=== PATIENT | male | born 1975 | race Caucasian/White ===

== ENCOUNTER 2023-01-05 17:32 | Observation (INO) | payer OTHER ==
[2023-01-05 17:41] VITALS: BMI 35.1
[2023-01-05] MEDS ORDERED: VANCOMYCIN 1,000 MG in DEXTROSE 5%-WATER - 250 ML IVPB ONE (18:35)
[2023-01-05] MEDS ORDERED: CEFEPIME HCL 1 GM VIAL (RESTRICTED TO ID) IVPB ONE (18:45)
[2023-01-05] MEDS ORDERED: CEFEPIME 1 GM/100 ML BAG IVPB ONE (18:50)
[2023-01-05 19:23] LABS: BASO % 0.8 % (0-2.0); EOS % 2.6 % (0-4.5); HEMATOCRIT 40.3 % (35.4-49); HEMOGLOBIN 13.7 GM/dL (11.7-16.9); MCH 30.9 pg (25.7-33.7); MCHC 33.9 g/dl (32.0-35.9); MEAN CELL VOLUME 91.2 fl (80-96); MEAN PLT VOLUME 6.7 fl (7.5-11.1); MONO % 9.7 % (3.8-10.2); NEUT % 63.9 % (42.8-82.8); PLATELET COUNT 508 10^3/uL (134-434); RBC 4.42 M/mm3 (4.00-5.60); RDW 14.7 % (11.9-15.9); WHITE BLOOD COUNT 7.3 K/mm3 (4.0-10.0)
[2023-01-05 19:31] LABS: INR 0.97 (0.83-1.09); PROTHROMBIN TIME (PATIENT) 11.3 SEC (9.7-13.0)
[2023-01-05 19:34] LABS: ACTIVATED PTT 32.3 SECONDS (25.2-36.5)
[2023-01-05 19:52] LABS: CHLORIDE 104 mmol/L (98-107); POTASSIUM 4.3 mmol/L (3.5-5.1); SODIUM 137 mmol/L (136-145)
[2023-01-05 19:54] LABS: CALCIUM 8.5 mg/dL (8.5-10.1)
[2023-01-05 19:55] LABS: ALBUMIN 3.4 g/dl (3.4-5.0); ANION GAP 4 mmol/L (4-13); BLOOD UREA NITROGEN 15.4 mg/dL (7-18); CO2 28 mmol/L (21-32); GLUCOSE,RANDOM 90 mg/dL (74-106)
[2023-01-05 19:58] LABS: CREATININE 0.7 mg/dL (0.55-1.3); SGOT/AST 19 U/L (15-37); SGPT/ALT 23 U/L (13-61)
[2023-01-05 20:01] LABS: ALK PHOS 156 U/L (45-117); BILIRUBIN,TOTAL 0.3 mg/dL (0.2-1); TOT PROT 6.8 g/dl (6.4-8.2)
[2023-01-05] MEDS ORDERED: VANCOMYCIN 1 GRAM (PRE-DOCKED) 1,000 MG/250 ML BAG IVPB ONE (20:25)
[2023-01-05] MEDS ORDERED: ACETAMINOPHEN 1000 MG/100 ML BAG IVPB ONE (20:44)
[2023-01-05] MEDS ORDERED: ACETAMINOPHEN INJECTION 100 ML IVPB ONE (20:55)
[2023-01-05 21:13] LABS: URINE APPEARANCE CLEAR; URINE BILIRUBIN NEGATIVE (NEGATIVE); URINE COLOR YELLOW; URINE GLUCOSE (UA) NEGATIVE (NEGATIVE); URINE KETONE NEGATIVE (NEGATIVE); URINE LEUK ESTERASE NEGATIVE (NEGATIVE); URINE NITRITE NEGATIVE (NEGATIVE); URINE PROTEIN NEGATIVE (NEGATIVE); URINE UROBILINOGEN 0.2 mg/dL (0.2-1.0)
[2023-01-06] MEDS ORDERED: DOCUSATE SODIUM 100 MG CAPSULE (FP) PO PRN (02:16)
[2023-01-06 02:53] LABS: URINE BENZODIAZEPINES NEGATIVE (NEGATIVE)
[2023-01-06 02:54] LABS: COCAINE, UR NEGATIVE (NEGATIVE); METHADONE, UR NEGATIVE (NEGATIVE); OPIATES, URI NEGATIVE (NEGATIVE); URINE AMPHETAMINES NEGATIVE (NEGATIVE)
[2023-01-06] MEDS ORDERED: ACETAMINOPHEN 1000 MG/100 ML BAG IVPB PRN (03:00)
[2023-01-06 03:08] LABS: PHENCYCLIDINE,URINE POSITIVE (NEGATIVE); URINE BARBITURATES NEGATIVE (NEGATIVE)
[2023-01-06] MEDS ORDERED: CEFEPIME HCL 2 GM VIAL (RESTRICTED TO ID) IVPB SCH (06:00)
[2023-01-06] MEDS: VANCOMYCIN/WATER 1250 MG 1,250 MG/250 ML BAG IVPB SCH ×2 (07:32→22:00)
[2023-01-06 10:21] LABS: BASO % 1.1 % (0-2.0); EOS % 3.5 % (0-4.5); HEMATOCRIT 40.9 % (35.4-49); HEMOGLOBIN 13.4 GM/dL (11.7-16.9); LYMPH % 24.3 % (8-40); MCH 30.7 pg (25.7-33.7); MCHC 32.8 g/dl (32.0-35.9); MEAN CELL VOLUME 93.5 fl (80-96); MEAN PLT VOLUME 6.9 fl (7.5-11.1); MONO % 10.1 % (3.8-10.2); PLATELET COUNT 481 10^3/uL (134-434); RBC 4.38 M/mm3 (4.00-5.60); RDW 14.1 % (11.9-15.9); WHITE BLOOD COUNT 6.1 K/mm3 (4.0-10.0)
[2023-01-06 10:42] LABS: POTASSIUM 4.2 mmol/L (3.5-5.1)
[2023-01-06 11:06] LABS: CALCIUM 8.6 mg/dL (8.5-10.1)
[2023-01-06 11:07] LABS: BLOOD UREA NITROGEN 17.3 mg/dL (7-18)
[2023-01-06 11:10] LABS: CREATININE 0.7 mg/dL (0.55-1.3)
[2023-01-06] MEDS: ENOXAPARIN NA (PORCINE) 40 MG/0.4 ML DISP.SYRIN SQ SCH (18:06)
[2023-01-06] MEDS ORDERED: CEFEPIME 2 GM in DEXTROSE 5%-WATER 100 ML IVPB SCH (22:00)
[2023-01-07] MEDS: KETOROLAC TROMETHAMINE 15 MG/ML VIAL IVPUSH PRN ×2 (06:47→17:21)
[2023-01-07] MEDS: ENOXAPARIN NA (PORCINE) 40 MG/0.4 ML DISP.SYRIN SQ SCH (09:31)
[2023-01-07] MEDS: CEFTRIAXONE 1 GM in DEXTROSE 5%-WATER - 50 ML IVPB SCH (13:33)
[2023-01-07] MEDS: CEFEPIME HCL 2 GM VIAL (RESTRICTED TO ID) IVPB SCH ×2 (13:34→13:35)
[2023-01-07] MEDS: VANCOMYCIN/WATER 1250 MG 1,250 MG/250 ML BAG IVPB SCH ×2 (13:35→13:36)
[2023-01-08] MEDS: CEFTRIAXONE 1 GM in DEXTROSE 5%-WATER - 50 ML IVPB SCH (09:59)
[2023-01-08] MEDS: ENOXAPARIN NA (PORCINE) 40 MG/0.4 ML DISP.SYRIN SQ SCH (09:59)
[2023-01-08] MEDS: KETOROLAC TROMETHAMINE 15 MG/ML VIAL IVPUSH PRN (10:51)
[2023-01-08] MEDS ORDERED: ACETAMINOPHEN 325 MG TABLET (FP) PO PRN (11:08)
[2023-01-08 11:17] LABS: EOS % 3.5 % (0-4.5); HEMOGLOBIN 13.8 GM/dL (11.7-16.9); LYMPH % 28.5 % (8-40); MCH 30.4 pg (25.7-33.7); MCHC 32.8 g/dl (32.0-35.9); MEAN CELL VOLUME 92.7 fl (80-96); MEAN PLT VOLUME 7.1 fl (7.5-11.1); MONO % 10.7 % (3.8-10.2); NEUT % 56.3 % (42.8-82.8); PLATELET COUNT 458 10^3/uL (134-434); RBC 4.53 M/mm3 (4.00-5.60); RDW 13.8 % (11.9-15.9); WHITE BLOOD COUNT 5.9 K/mm3 (4.0-10.0)
[2023-01-08 11:35] LABS: POTASSIUM 4.4 mmol/L (3.5-5.1)
[2023-01-08 11:46] LABS: ALBUMIN 3.2 g/dl (3.4-5.0); BLOOD UREA NITROGEN 16.9 mg/dL (7-18); CALCIUM 8.3 mg/dL (8.5-10.1)
[2023-01-08 11:50] LABS: CREATININE 0.7 mg/dL (0.55-1.3)
[2023-01-08 11:51] LABS: TOT PROT 6.6 g/dl (6.4-8.2)
[2023-01-08 11:53] LABS: BILIRUBIN,TOTAL 0.4 mg/dL (0.2-1)
[2023-01-08] MEDS ORDERED: CYCLOBENZAPRINE HCL 5 MG TABLET PO SCH (14:00)
[2023-01-08] MEDS ORDERED: LIDOCAINE 4% PATCH TP ONE (17:13)
[2023-01-08] MEDS ORDERED: CYCLOBENZAPRINE HCL 5 MG TABLET PO PRN (17:15)
[2023-01-08] MEDS: LIDOCAINE PATCH REMOVAL MC SCH (22:10)
[2023-01-09] MEDS: CEFTRIAXONE 1 GM in DEXTROSE 5%-WATER - 50 ML IVPB SCH (10:23)
[2023-01-09] MEDS: ENOXAPARIN NA (PORCINE) 40 MG/0.4 ML DISP.SYRIN SQ SCH (10:24)
[2023-01-09 12:41] LABS: HEMATOCRIT 43.1 % (35.4-49); MCHC 32.4 g/dl (32.0-35.9); MEAN CELL VOLUME 92.6 fl (80-96); MEAN PLT VOLUME 7.1 fl (7.5-11.1); PLATELET COUNT 451 10^3/uL (134-434); RBC 4.65 M/mm3 (4.00-5.60); WHITE BLOOD COUNT 6.6 K/mm3 (4.0-10.0)
[2023-01-09 13:07] LABS: POTASSIUM 4.4 mmol/L (3.5-5.1)
[2023-01-09 13:13] LABS: ALBUMIN 3.3 g/dl (3.4-5.0); CALCIUM 8.5 mg/dL (8.5-10.1); MAGNESIUM 2.2 mg/dL (1.8-2.4)
[2023-01-09 13:16] LABS: CREATININE 0.7 mg/dL (0.55-1.3); PHOSPHOROUS 3.6 mg/dL (2.5-4.9)
[2023-01-09 13:17] LABS: BILIRUBIN,TOTAL 0.6 mg/dL (0.2-1); TOT PROT 6.9 g/dl (6.4-8.2)
[2023-01-09] MEDS ORDERED: AMOX TR/POT CLAV 875MG/125MG TABLETS (FP) PO SCH (17:30)
[2023-01-09] MEDS ORDERED: ARIPiprazole 15 MG TABLET PO SCH (22:00)
[2023-01-09] MEDS ORDERED: QUEtiapine FUMARATE 100 MG TABLET (FP) PO SCH (22:00)
[2023-01-09] MEDS: VALPROIC ACID 250 MG CAPSULE PO SCH (22:53)
[2023-01-09] MEDS: LIDOCAINE PATCH REMOVAL MC SCH (22:53)
[2023-01-10 07:39] VITALS: RESP 18
[2023-01-10] MEDS ORDERED: AMOX TR/POT CLAV 875MG/125MG TABLETS (FP) PO SCH (08:00)
[2023-01-10 09:17] LABS: HEMATOCRIT 43.5 % (35.4-49); MCH 29.9 pg (25.7-33.7); MCHC 32.1 g/dl (32.0-35.9); MEAN CELL VOLUME 93.2 fl (80-96); MEAN PLT VOLUME 7.1 fl (7.5-11.1); PLATELET COUNT 438 10^3/uL (134-434); RBC 4.67 M/mm3 (4.00-5.60); RDW 14.1 % (11.9-15.9); WHITE BLOOD COUNT 6.7 K/mm3 (4.0-10.0)
[2023-01-10 09:29] LABS: POTASSIUM 4.5 mmol/L (3.5-5.1)
[2023-01-10 09:35] LABS: CALCIUM 8.7 mg/dL (8.5-10.1)
[2023-01-10 09:36] LABS: ALBUMIN 3.3 g/dl (3.4-5.0)
[2023-01-10 09:37] LABS: MAGNESIUM 2.1 mg/dL (1.8-2.4)
[2023-01-10 09:38] LABS: PHOSPHOROUS 3.5 mg/dL (2.5-4.9)
[2023-01-10 09:39] LABS: CREATININE 0.8 mg/dL (0.55-1.3)
[2023-01-10 09:40] LABS: BILIRUBIN,TOTAL 0.6 mg/dL (0.2-1)
[2023-01-10 09:42] LABS: TOT PROT 6.8 g/dl (6.4-8.2)
[2023-01-10] MEDS: ENOXAPARIN NA (PORCINE) 40 MG/0.4 ML DISP.SYRIN SQ SCH (09:56)
[2023-01-10] MEDS: VALPROIC ACID 250 MG CAPSULE PO SCH (10:00)
[2023-01-10] MEDS ORDERED: clonazePAM 0.5 MG TABLET PO SCH (12:00)
[2023-01-10 14:29] VITALS: BP 103/68; PULSE 78; TEMP 97.8
== END 2023-01-10 15:54 | disposition home or self-care (01) ==
LOC: JER 17:32 → JERBED 01-06 01:34 → J5S 01-06 04:24
PROVIDERS: ADMIT Internal Medicine; ATTEND Internal Medicine
PROC: 3E033NZ Introduction of Analgesics, Hypnotics, Sedatives into Peripheral Vein, Percutaneous Approach (ICD-10-PCS; principal; 2023-01-06)
PROC: 3E023GC Introduction of Other Therapeutic Substance into Muscle, Percutaneous Approach (ICD-10-PCS; 2023-01-06)
PROC: 3E03329 Introduction of Other Anti-infective into Peripheral Vein, Percutaneous Approach (ICD-10-PCS; 2023-01-06)
PROC: 3E033GC Introduction of Other Therapeutic Substance into Peripheral Vein, Percutaneous Approach (ICD-10-PCS; 2023-01-06)
DX: L03.115 Cellulitis of right lower limb (principal); F31.9 Bipolar disorder, unspecified; F20.9 Schizophrenia, unspecified; R56.9 Unspecified convulsions; F19.10 Other psychoactive substance abuse, uncomplicated; F41.8 Other specified anxiety disorders; Z85.47 Personal history of malignant neoplasm of testis; Z90.89 Acquired absence of other organs; F10.99 Alcohol use, unspecified with unspecified alcohol-induced disorder; M25.552 Pain in left hip; M25.562 Pain in left knee; Z88.0 Allergy status to penicillin; Z91.013 Allergy to seafood; F17.200 Nicotine dependence, unspecified, uncomplicated
CPT/HCPCS: 0241U-QW; 36415; 72148-TC; 73521-TC-FY; 73564-TC-LT-FY; 73564-TC-RT-FY; 73590-TC-RT-FY; 73610-TC-RT-FY; 73630-TC-RT-FY; 80048; 80053; 80307; 81003; 82550; 82553; 83605; 83735; 84100; 85025; 85027; 85610; 85651; 85730; 86140; 87040; 87086; 93005; 93010; 93970-TC; 96365; 96366; 96367; 96372; 96375; 96376; 99285-25; G0378

== ENCOUNTER 2024-01-03 16:49 | Emergency (ER) | payer OTHER ==
[2024-01-03 17:49] VITALS: BP 119/79; PULSE 97; RESP 18; TEMP 98.7; BMI 35.1
[2024-01-03] MEDS ORDERED: ACETAMINOPHEN INJECTION 100 ML ONE (17:52)
[2024-01-03] MEDS ORDERED: ALBUTEROL SO4 2.5/IPRATROPIUM 0.5 INH SOL 3 ML VIAL.NEB. NEB ONE (17:52)
[2024-01-03] MEDS: ACETAMINOPHEN 1000 MG/100 ML BAG IVPB ONE (17:57)
[2024-01-03] MEDS: ALBUTEROL SO4 2.5/IPRATROPIUM 0.5 INH SOL 3 ML VIAL.NEB. NEB SCH (17:57)
[2024-01-03 17:59] LABS: BASO % 0.4 % (0-2.0); EOS % 0.6 % (0-4.5); HEMATOCRIT 45.7 % (35.4-49); HEMOGLOBIN 15.2 GM/dL (11.7-16.9); LYMPH % 8.6 % (8-40); MCH 30.3 pg (25.7-33.7); MCHC 33.3 g/dl (32.0-35.9); MEAN CELL VOLUME 91.1 fl (80-96); MEAN PLT VOLUME 6.9 fl (7.5-11.1); MONO % 9.2 % (3.8-10.2); NEUT % 81.2 % (42.8-82.8); PLATELET COUNT 349 10^3/uL (134-434); RBC 5.01 M/mm3 (4.00-5.60); RDW 14.2 % (11.9-15.9); WHITE BLOOD COUNT 12.6 K/mm3 (4.0-10.0)
[2024-01-03 18:09] LABS: INR 0.91 (0.83-1.09); PROTHROMBIN TIME (PATIENT) 10.3 SEC (9.7-13.0)
[2024-01-03 18:12] LABS: ACTIVATED PTT 30.6 SECONDS (25.2-36.5)
[2024-01-03 18:15] LABS: POTASSIUM 4.1 mmol/L (3.5-5.1)
[2024-01-03 18:18] LABS: ALBUMIN 3.6 g/dl (3.4-5.0); BLOOD UREA NITROGEN 16.5 mg/dL (7-18)
[2024-01-03 18:20] LABS: CREATININE 0.8 mg/dL (0.55-1.3)
[2024-01-03 18:22] LABS: BILIRUBIN,TOTAL 0.4 mg/dL (0.2-1); TOT PROT 6.7 g/dl (6.4-8.2)
== END 2024-01-03 22:18 | disposition home or self-care (01) ==
LOC: JER 16:49
PROC: 3E033NZ Introduction of Analgesics, Hypnotics, Sedatives into Peripheral Vein, Percutaneous Approach (ICD-10-PCS; principal; 2024-01-03)
PROC: 3E0F7GC Introduction of Other Therapeutic Substance into Respiratory Tract, Via Natural or Artificial Opening (ICD-10-PCS; 2024-01-03)
DX: R07.9 Chest pain, unspecified (principal); Z20.822 Contact with and (suspected) exposure to COVID-19
CPT/HCPCS: 0241U-QW; 36415; 71045-TC-FY; 80053; 84484; 85025; 85379; 85610; 85730; 93005; 93010; 99285-25; J0131